=== PATIENT | female | born 1995 | race Two or more races ===

== ENCOUNTER 2021-08-25 19:40 | Emergency (ER) | payer MEDICAID ==
[~2021-08-25] VITALS: Ht 162.6 cm; Wt 71.0 kg
[2021-08-25] MEDS ORDERED: IBUPROFEN 600MG TABLET PO ONE (21:15)
[2021-08-25] MEDS ORDERED: ACETAMINOPHEN 325MG TABLET PO ONE (21:15)
[2021-08-25] MEDS ORDERED: IBUP-2029 MT (21:40)
[2021-08-25 22:11] VITALS: BP 124/47
== END 2021-08-25 22:13 | disposition home or self-care (01) ==
LOC: ER 19:40
DX: U07.1 COVID-19 (principal); J02.9 Acute pharyngitis, unspecified; Z98.890 Other specified postprocedural states
CPT/HCPCS: 99283